=== PATIENT | female | born 1980 | race African-American/Black ===

== ENCOUNTER 2016-02-13 18:52 | Emergency (ER) ==
[2016-02-13 19:30] VITALS: BP 120/85
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
[2016-02-13] MEDS ORDERED: TORADOL IM ONE (22:00)
[2016-02-13] MEDS ORDERED: NORFLEX IM ONE (22:00)
--- NOTE | 2016-02-14 09:49 | Diag Imaging Result Document ---
PROCEDURE NAME: CERVICAL SPINE COMPLETE - 02/13/2016 PLAIN RADIOGRAPHS OF THE CERVICAL SPINE, 6 VIEWS: COMPARISON: None available. FINDINGS: There is mild endplate degenerative change at the inferior endplate of C5 with a small ventral marginal osteophyte. The intervertebral disk spaces and vertebral body heights appear to be well maintained. The bony neural foramina appear to be patent. There is no evidence of fracture, subluxation, or intrinsic osseous lesion, otherwise. Surrounding soft tissues are grossly unremarkable. IMPRESSION: Mild degenerative change at the endplate of C5 inferiorly but no evidence of fracture or other definite acute C-spine injury.
== END 2016-02-13 23:25 | disposition home or self-care (01) ==
LOC: P.ED 18:52
DX: S16.1XXA Strain of muscle, fascia and tendon at neck level, initial encounter (principal); M54.2 Cervicalgia; M54.6 Pain in thoracic spine; M54.5 Low back pain; M25.511 Pain in right shoulder; M79.601 Pain in right arm; M79.1 Myalgia; M62.838 Other muscle spasm; M62.830 Muscle spasm of back; M19.90 Unspecified osteoarthritis, unspecified site; M79.7 Fibromyalgia; Z79.899 Other long term (current) drug therapy; V43.52XA Car driver injured in collision with other type car in traffic accident, initial encounter
CPT/HCPCS: 72050; 81025; 96372; J1885; J2360